=== PATIENT | male | born 1940 | race Caucasian/White ===

== ENCOUNTER → 2021-10-10 00:25 | Outpatient (CLI) | payer MEDICARE, SELFPAY ==
[2021-10-10 11:34] LABS: SARS-CoV-2 RNA PCR Negative
== END ==
PROVIDERS: PCP Family Medicine; Visit Provider Family Medicine
DX: J02.9 Acute pharyngitis, unspecified (principal); J06.9 Acute upper respiratory infection, unspecified; Z20.822 Contact with and (suspected) exposure to COVID-19
CPT/HCPCS: C9803; U0003; U0005

== ENCOUNTER → 2022-02-05 14:14 | Outpatient (CLI) | payer MEDICARE, SELFPAY ==
--- NOTE | ~2022-02-05 | XR_ITS ---
XR lumbar spine 2-3V DATE: 02/05/2022 14:29 INDICATION: Low back pain TECHNIQUE: Upright AP and lateral views COMPARISON: None FINDINGS: There is diffuse osteopenia. There is dextroscoliosis of the thoracolumbar spine. There is degenerative spurring of the lower thoracic spine. There is moderate loss of height and anterior wedging at T12, likely old fracture, likely compression type. There is Grade 2/grade 3 anterolisthesis at L4-5 with severe degenerative disc disease at this level and at L5 -S1.. Moderate to moderately severe degenerative disc disease is noted at the remaining lumbar inters paces. There is a prominent amount of fecal material in the colon. IMPRESSION: Osteopenia Probable old T12 compression fracture Borderline grade 2/grade 3 spondylolisthesis at L4-5 Severe degenerative disc disease at L4-5 and L5-S1 and moderate to moderately severe degenerative dis ease at the remaining lumbar interspaces Reviewed, dictated and finalized at location A. AL WINDING MACHINE HELPER IMPRESSION: Osteopenia Probable old T12 compression fracture Borderline grade 2/grade 3 spondylolisthesis at L4-5 Severe degenerative disc disease at L4-5 and L5-S1 and moderate to moderately s evere degenerative disease at the remaining lumbar interspaces
== END ==
PROVIDERS: PCP Nurse Practitioner Family; Visit Provider Nurse Practitioner Family
DX: M85.88 Other specified disorders of bone density and structure, other site (principal); M51.37 Other intervertebral disc degeneration, lumbosacral region; M51.36 Other intervertebral disc degeneration, lumbar region
CPT/HCPCS: 72100

== ENCOUNTER 2022-02-11 10:28 | Emergency (ER) | payer MEDICARE, SELFPAY ==
--- NOTE | ~2022-02-11 | XR_ITS ---
EXAMINATION: [id number] INDICATION: Right rib pain after fall TECHNIQUE: A frontal view of the chest and 3 views of the right ribs were obtained. COMPARISON: None. FINDINGS: There is a small right pleural effusion. There are minimal right basilar airspace opacities . No pneumothorax is identified. The cardiomediastinal silhouette is normal. There are acute fracture s of the right fourth, seventh, eighth, and ninth ribs. IMPRESSION: 1. Multiple right-sided rib fractures. 2. Small right pleural effusion with minimal right basilar airspace opacity, likely atelectasis. Reviewed, dictated and finalized at location A. ING MACHINE OPERATOR IMPRESSION: 1. Multiple right-sided rib fractures. 2. Small right pleural effusion with minimal right basilar airspace opacity, li diamond atelectasis.
[2022-02-11 10:40] VITALS: BP 129/87; PULSE 87; RESP 16; TEMP 36.2; O2SAT 96
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
== END 2022-02-11 12:08 | disposition home or self-care (01) ==
PROVIDERS: Emergency Provider Nurse Practitioner Family; PCP Family Medicine
DX: J90 Pleural effusion, not elsewhere classified (principal); M54.50 Low back pain, unspecified; S22.41XA Multiple fractures of ribs, right side, initial encounter for closed fracture; W19.XXXA Unspecified fall, initial encounter; Z87.891 Personal history of nicotine dependence
CPT/HCPCS: 71101; 81003; 99213; G0463

== ENCOUNTER 2022-02-12 18:59 | Emergency (ER) | payer MEDICARE, SELFPAY ==
[2022-02-12] VITALS (16 sets, daily range): BP systolic 124–143; BP diastolic 75–96; PULSE 74–94; RESP 18–25; TEMP 36.8–36.9; O2SAT 94–100
--- NOTE | ~2022-02-12 | XR_ITS ---
EXAMINATION: XR chest 2V DATE: 02/12/2022 19:32 INDICATION: Weakness, recent fall TECHNIQUE: AP and lateral views of the chest are obtained. COMPARISON: 02/11/2022 FINDINGS: There is a small right pleural effusion. There are minimal airspace opacities of the right lung base. No pneumothorax is identified. The cardiomediastinal silhouette is normal. Acute right-emmett ed rib fractures are again noted. IMPRESSION: 1. Minimal right basilar atelectasis. 2. Multiple right-sided rib fractures. Reviewed, dictated and finalized at location F. ULATION SUPERVISOR
--- NOTE | ~2022-02-12 | CT_ITS ---
EXAMINATION: CT cervical spine wo con DATE: 02/12/2022 22:37 INDICATION: Head injury TECHNIQUE: Computed tomography (CT) of the cervical spine was performed without intravenous contrast. The dose-length product (DLP) was 321.87 mGy-cm. Automated exposure control and iterative reconstruc tion technique were employed. COMPARISON: None FINDINGS: There are 2 mm of retrolisthesis of C3 on C4. The vertebral body heights are maintained. Th ere is severe loss of intervertebral disc space height from C3-4 through C7-T1. There is multilevel s evere facet and uncovertebral joint osteoarthritis. There is a lytic lesion in the C2 vertebral body. No fracture is identified. There is a lytic lesion of the posterior right first rib. IMPRESSION: 1. Severe cervical spondylosis without acute findings. 2. Lytic lesions of C2 and the right first rib, consistent with myeloma versus metastatic disease. Reviewed, dictated and finalized at location F. ATIONAL PSYCHOLOGY TEACHER
--- NOTE | ~2022-02-12 | CT_ITS ---
EXAMINATION: CT brain wo con INDICATION: Head injury COMPARISON: None TECHNIQUE: Standard unenhanced head CT. The dose-length product (DLP) was 605.33 mGy-cm. The mA was a djusted according to patient size. Iterative reconstruction technique was employed. FINDINGS: There is no acute intraparenchymal hemorrhage. No evidence of mass lesion. No evidence of a cute infarction. There is mild periventricular and subcortical hypodensity probably related to small vessel ischemic disease. There is mild prominence of the sulci and ventricles related to cerebral atr ophy. Intracranial calcified cerebral atherosclerosis is noted. There are no extra-axial collections. There is no mass effect or midline shift. Changes in the globes are likely from ocular lens surgery. The visualized sinuses and mastoid air cells are well aerated. IMPRESSION: 1. No acute intracranial abnormality. 2. Age related findings. Reviewed, dictated and finalized at location F. D WASTE LANDFILL TECHNICIAN
--- NOTE | ~2022-02-12 | CT_ITS ---
EXAMINATION: CT chst ab pel thor lum wo DATE: 02/12/2022 20:31 INDICATION: Chest, abdominal, and back pain after fall TECHNIQUE: Transaxial computed tomographic images of the chest, abdomen, pelvis, thoracic, and lumbar spine were obtained after the administration of 100 cc of Omnipaque 350 intravenous contrast. The do se-length product (DLP) was 384.32 mGy-cm. Automated exposure control and iterative reconstruction te chnique were employed. COMPARISON: None FINDINGS: CHEST CT: There are acute fractures of the right fourth through 10th ribs. There are minimal airspace opacities in the right lower lobe. There is a trace right pleural effusion. No pneumothorax is ident ified. No pathologically enlarged thoracic lymph nodes are identified. The heart size is normal. Ther e is calcified coronary artery atherosclerosis. There is an acute fracture in the medial aspect of th e left ninth rib. There are also acute fractures of the left 10th and 11th ribs posteriorly. ABDOMEN/PELVIS CT: Within the limitations of noncontrast examination, the liver, spleen, pancreas, ga llbladder, and adrenal glands are normal. The kidneys are unremarkable. No pathologically enlarged ab dominal or pelvic lymph nodes are identified. There is no free intraperitoneal gas or evidence of bow el obstruction. A large volume of colonic stool is present. THORACIC SPINE: Bone alignment is normal. There is loss of intervertebral disc space height at multip le levels of the thoracic spine. There are lytic lesions involving multiple vertebral bodies. These e xtend to the left pedicle and lamina at T9. LUMBAR SPINE: There are bilateral L5 pars defects with grade 2 anterolisthesis of L5 on S1. There is a lytic lesion of the L1 vertebral body which extends into the left pedicle. There is a lytic lesion in the left lamina and pedicle of L5. There is an expansile lytic lesion of the left sacrum effacing the left S2 and S3 neural foramina. IMPRESSION: 1. Multiple bilateral rib fractures as described above. 2. Right lower lobe airspace opacities, likely atelectasis, possible pulmonary contusion. 3. Multiple lytic lesions of the spine consistent with metastatic disease versus myeloma. 4. Severe thoracic and moderate lumbar spondylosis. Reviewed, dictated and finalized at location F. ERTY DEVELOPER IMPRESSION: 1. Multiple bilateral rib fractures as described above. 2. Right lower lobe airspace opacities, likely atelectasis, possible pulmonary contusion. 3. Multiple lytic lesions of the spine consistent with metastatic disease versu s myeloma. 4. Severe thoracic and moderate lumbar spondylosis.
--- NOTE | 2022-02-12 19:07 | ECG_ITS ---
Measurements Intervals [place] Rate: 90 P: 37 MS: 126 QRS: 53 QRSD: 83 T: 36 QT: 305 QTc: 374 Interpretive Statements SINUS RHYTHM WITH SINUS ARRHYTHMIA NONSPECIFIC T-WAVE ABNORMALITY- ANT/INF LEADS BASELINE ARTIFACT- I, II, III, AVR, AVL BORDERLINE ECG NO PREVIOUS ECG AVAILABLE FOR COMPARISON Electronically Signed On 02-12-2022 19:40:14 FITNESS WORKER by Renzo Barrett D.O.
[2022-02-12 19:54] LABS: Add Urine Microscopic? NO; Appearance Urine Clear (Clear); Basophils Percent Auto 0.3 % (0.2-1.2); Bilirubin Urine Negative (Negative); Blood Urine Negative (Negative); Color Urine Yellow (Yellow); Eosinophils Percent Auto 0.2 % (0-4.4); Glucose Urine UA Negative (Negative); Hematocrit 32.5 % (42.0-52.0); Hemoglobin 11.4 g/dL (14.0-18.0); Immature Granulocyte Absolute 0.16 K/mm3 (0.00-0.031); Immature Granulocyte Percent A 1.6 % (0-0.5); Ketones Urine Negative (Negative); Leukocyte Esterase Ur Negative LEU/UL (Negative); Lymphocytes Absolute Auto 1.22 K/mm3 (0.9-3.2); Lymphocytes Percent Auto 11.8 % (18.3-44.2); Mean Corpuscular HGB Conc 35.1 g/dl (32-36); Mean Corpuscular Hemoglobin 31.2 pg (26-34); Mean Platelet Volume 9.1 fl (7.4-10.4); Monocytes Absolute Auto 0.9 K/mm3 (0.1-0.6); Monocytes Percent Auto 8.2 % (2.6-8.5); Neutrophils Percent Auto 77.9 % (45.5-73.1); Nitrate Urine Negative (Negative); Platelet Count Result 208 k/mm3 (150-375); Protein Urine Negative (Negative); Red Blood Count 3.65 M/mm3 (4.6-6.20); Urobilinogen Urine 0.2 mg/dL (<2.0); White Blood Count 10.3 K/mm3 (4.5-10.0); pH Urine 5.5 (5.0-9.0)
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
[2022-02-12 20:10] LABS: Alanine Aminotransferase 49 U/L (6-50); Albumin Level 3.2 g/dL (3.5-5.1); Alkaline Phosphatase 142 U/L (38-126); Anion Gap 5 mmol/L (8-16); Aspartate Amino Transferase 110 U/L (17-59); Bilirubin,Total 1.6 mg/dL (0.2-1.3); Blood Urea Nitrogen 51 mg/dL (9-20); Carbon Dioxide 30 mmol/L (22-30); Chloride 94 mmol/L (98-107); Estimated CRCL calculation 19 ml/min; Estimated Glomerular Filt Rate 26; Glucose 121 mg/dL (65-110); Potassium 3.7 mmol/L (3.4-5.0); Sodium 129 mmol/L (137-145)
[2022-02-12 20:24] LABS: Calcium 14.7 mg/dL (8.4-10.2)
[2022-02-12 20:44] LABS: NT Pro B Type Natriuretic Pept 859 pg/mL (5-100); Troponin I 0.027 ng/mL (0.000-0.034)
[2022-02-12] MEDS: SODIUM CHLORIDE 0.9% IV 1,000 ML 999 ML IV CONT (21:08)
[2022-02-12 22:21] LABS: Influenza A QL RT-PCR Negative (Negative); Influenza B QL RT-PCR Negative (Negative); SARS-CoV-2 RNA PCR Negative
[2022-02-13 00:29] VITALS: PULSE 76; RESP 17
[2022-02-13 00:38] VITALS: BP 142/80; PULSE 88; RESP 19; O2SAT 97
[2022-02-13 00:49] VITALS: BP 134/89; PULSE 80; RESP 15; O2SAT 96
== END 2022-02-13 01:00 | disposition short-term general hospital (02) ==
PROVIDERS: Emergency Medicine; Emergency Provider Preventive Medicine Aerospace Medicine; PCP Family Medicine
DX: S22.43XA Multiple fractures of ribs, bilateral, initial encounter for closed fracture (principal); N17.9 Acute kidney failure, unspecified; E83.52 Hypercalcemia; M89.9 Disorder of bone, unspecified; Z87.891 Personal history of nicotine dependence; R91.8 Other nonspecific abnormal finding of lung field; M47.816 Spondylosis without myelopathy or radiculopathy, lumbar region; M47.814 Spondylosis without myelopathy or radiculopathy, thoracic region; R94.31 Abnormal electrocardiogram [ECG] [EKG]; W19.XXXA Unspecified fall, initial encounter; Z20.822 Contact with and (suspected) exposure to COVID-19
CPT/HCPCS: 36415; 70450; 71046; 71250; 72125; 72128; 72131; 74176; 80053; 81003; 83880; 84484; 85025; 87636; 93005; 96360; 99285; J7030